=== PATIENT | female | born 1955 | race Two or more races ===

== ENCOUNTER → 2024-10-11 12:07 | Outpatient (REF) | payer OTHER, SELFPAY | LOC: MRI 3T 12:07 | PROVIDERS: ATTENDING PHYSICIAN Physician Assistant; FAMILY PHYSICIAN Internal Medicine | DX: M25.561 Pain in right knee (principal) | CPT/HCPCS: 73721 ==

== ENCOUNTER → 2025-03-06 17:02 | Outpatient (REF) | payer OTHER, SELFPAY | LOC: RAD 17:02 | PROVIDERS: ATTENDING PHYSICIAN Orthopaedic Surgery; FAMILY PHYSICIAN Internal Medicine | DX: M79.89 Other specified soft tissue disorders (principal); S83.221A Peripheral tear of medial meniscus, current injury, right knee, initial encounter | CPT/HCPCS: 76882 ==